=== PATIENT | male | born 1940 ===

== ENCOUNTER 2024-07-03 14:00 | Outpatient (REF) | payer OTHER, SELFPAY | END 2024-07-03 14:01 | disposition home or self-care (01) | LOC: HO.SH 14:00 | PROVIDERS: Visit Provider Student in an Organized Health Care Education/Training Program | DX: Z01.118 Encounter for examination of ears and hearing with other abnormal findings (principal); H90.3 Sensorineural hearing loss, bilateral | CPT/HCPCS: 92553 ==